=== PATIENT | male | born 1995 | race African-American/Black ===

== ENCOUNTER 2021-09-28 12:49 | Emergency (ER) | payer MEDICAID, OTHER ==
[~2021-09-28] VITALS: Ht 188 cm; Wt 78.0 kg
[2021-09-28 12:58] VITALS: BP 102/78
== END 2021-09-29 08:22 | disposition home or self-care (01) ==
LOC: ER 13:56
DX: H61.21 Impacted cerumen, right ear (principal)
CPT/HCPCS: 99281; Z7610

== ENCOUNTER 2023-07-03 08:42 | Emergency (ER) | payer MEDICAID, OTHER ==
[~2023-07-03] VITALS: Ht 177.8 cm; Wt 75.0 kg
[2023-07-03 08:46] VITALS: O2SAT 99
[2023-07-03] MEDS ORDERED: TETANUS, DIPHTHERIA, PERTUSSIS VAC/PF 0.5ML (>10YR OLD) IM ONE (10:00)
[2023-07-03] MEDS ORDERED: BACITRACIN ZINC OINT UDPKT TOP ONE (10:30)
[2023-07-03] MEDS ORDERED: LIDOCAINE HCL/EPINEPHRINE 1%-EPI 1:100,000 20 ML VIAL INFIL ONE (10:30)
[2023-07-03] MEDS ORDERED: IBUPROFEN 600MG TABLET PO ONE (10:30)
[2023-07-03] MEDS ORDERED: METH-653 MT (13:13)
[2023-07-03 13:39] VITALS: BP 125/75; PULSE 81; RESP 17; TEMP 98.8
== END 2023-07-03 13:40 | disposition home or self-care (01) ==
LOC: ER 08:42
DX: S61.511A Laceration without foreign body of right wrist, initial encounter (principal); M54.2 Cervicalgia; Y08.89XA Assault by other specified means, initial encounter; Y93.89 Activity, other specified; Y92.89 Other specified places as the place of occurrence of the external cause; Y99.8 Other external cause status
CPT/HCPCS: 90715; 12002; 90471; 99283; J3490; Z7610 ×3

== ENCOUNTER 2023-07-16 10:32 | Emergency (ER) | payer MEDICAID ==
[~2023-07-16] VITALS: Ht 188 cm; Wt 78.0 kg
[~2023-07-16 10:32] MED LIST: METH-653 MT
[2023-07-16 10:37] VITALS: BP 138/87; PULSE 64; RESP 16; TEMP 98.8; O2SAT 100
== END 2023-07-16 11:45 | disposition home or self-care (01) ==
LOC: ER 11:05
DX: S61.411D Laceration without foreign body of right hand, subsequent encounter (principal); X58.XXXD Exposure to other specified factors, subsequent encounter
CPT/HCPCS: 99281